=== PATIENT | male | born 1965 | race Caucasian/White ===

== ENCOUNTER → 2019-03-01 17:20 | Outpatient (CLI) | payer MEDICAID, SELFPAY ==
[2019-03-01 18:03] LABS: Basophils % 0.5 % (0.1-2.0); Eosinophils # 0.2 K/mm3 (0.0-0.4); Eosinophils % 3.3 % (0.1-12.0); Hematocrit 46.9 % (42.0-52.0); Hemoglobin 15.3 g/dL (14.1-18.0); Lymphocytes # 2.4 K/mm3 (0.7-4.5); Lymphocytes % 33.7 % (10-50); Mean Corpuscular HGB Conc 32.6 g/dL (31.8-35.4); Mean Corpuscular Hemoglobin 30.6 pg (27.0-31.2); Mean Corpuscular Volume 93.9 fl (80-94); Mean Platelet Volume 9.2 fl (7.4-10.4); Monocytes # 0.5 K/mm3 (0.1-1.0); Monocytes % 6.7 % (1.7-9.3); Neutrophils % 55.7 % (37.0-80.0); Platelet Count 266 K/mm3 (142-424); Red Blood Count 4.99 M/mm3 (4.60-6.20); Red Cell Distribution Width 12.4 % (11.5-17.5); White Blood Count 7.2 K/mm3 (4.8-10.8)
[2019-03-01 19:45] LABS: Alanine Aminotransferase 23 U/L (12-78); Albumin Level 3.9 gm/dL (3.4-5.0); Albumin/Globulin Ratio 1.2 (1.1-1.8); Alkaline Phosphatase 103 U/L (46-116); Anion Gap 14.8 mEq/L (5-15); Aspartate Amino Transferase 14 U/L (15-37); Bilirubin,Total 0.3 mg/dL (0.2-1.0); Blood Urea Nitrogen 11 mg/dL (7-18); Calcium 8.7 mg/dL (8.5-10.1); Carbon Dioxide 25 mmol/L (21.0-32.0); Chloride 102 mmol/L (98-107); Chol/HDL Ratio 5.6 (1-3.5); Cholesterol 191 mg/dL (140-200); Creatinine,Serum 1.04 mg/dL (0.70-1.30); Estimated Glomerular Filt Rate 75 ml/min (>60); GFR (African American) 91 ML/MIN (>60); Globulin 3.3 gm/dl (1.3-3.2); Glucose 127 mg/dL (74-106); HDL Cholesterol 34 mg/dL (27-67); LDL Cholesterol 101 mg/dL (0-130); Potassium 3.8 mmoL/L (3.5-5.1); Sodium 138 mmol/L (136-145); T4 (Thyroxine) 7.8 ug/dl (4.7-13.3); Thyroid Stimulating Hormone 1.89 uIU/ml (0.358-3.740); Total Protein,Serum 7.2 gm/dL (6.4-8.2); Triglycerides 282 mg/dL (30-200); VLDL Cholesterol 56 mg/dL (0-40)
[2019-03-03 11:04] LABS: Vitamin D 25 Hydroxy 26.5 ng/mL (30.0-100.0)
== END ==
PROVIDERS: Visit Provider Nurse Practitioner Family
DX: Z00.00 Encounter for general adult medical examination without abnormal findings (principal); Z76.89 Persons encountering health services in other specified circumstances
CPT/HCPCS: 80053; 80061; 82652; 84436; 84443; 85025

== ENCOUNTER → 2019-03-05 17:54 | Outpatient (CLI) | payer MEDICAID, SELFPAY ==
[2019-03-05 18:37] LABS: Hemoglobin A1C 6.4 % (0.0-7.0)
== END ==
PROVIDERS: Visit Provider Nurse Practitioner Family
DX: R73.9 Hyperglycemia, unspecified (principal)
CPT/HCPCS: 83036

== ENCOUNTER → 2019-04-20 13:33 | Outpatient (CLI) | payer MEDICAID, SELFPAY | PROVIDERS: PCP Nurse Practitioner Family; Visit Provider Nurse Practitioner Family | DX: R06.81 Apnea, not elsewhere classified (principal) | CPT/HCPCS: G0399 ==

== ENCOUNTER → 2019-07-23 10:48 | Outpatient (CLI) | payer MEDICAID, SELFPAY ==
[2019-07-23 15:24] LABS: Coronavirus 19 IgG Antibody Negative (Negative); Coronavirus 19 IgM Antibody Negative (Negative)
== END ==
PROVIDERS: Visit Provider Specialist
DX: G47.33 Obstructive sleep apnea (adult) (pediatric) (principal); Z01.818 Encounter for other preprocedural examination
CPT/HCPCS: 36415; 86328

== ENCOUNTER → 2019-07-24 20:13 | Outpatient (CLI) | payer MEDICAID, SELFPAY | PROVIDERS: PCP Nurse Practitioner Family; Visit Provider Specialist | DX: G47.33 Obstructive sleep apnea (adult) (pediatric) (principal) | CPT/HCPCS: 95810 ==

== ENCOUNTER 2019-08-30 15:24 | Emergency (ER) | payer MEDICAID, SELFPAY ==
--- NOTE | 2019-08-30 15:39 | XR_ITS ---
PROCEDURE: XR ANKLE RT MIN 3V CLINICAL INDICATION: TWISTED FOOT AND ANKLE WHILE WALKING Pain COMPARISON: XR FOOT RT MIN 3V from 08/30/2019 FINDINGS: No fracture or dislocation. No lytic or blastic change. There is normal mineralization. The joint spaces are well-preserved. No significant degenerative/arthritic changes. No erosive changes evident. Other findings:There is a well-circumscribed small calcification noted along the lateral aspect the calcaneus consistent with dystrophic calcification. IMPRESSION: No acute findings. Dictated by: Fran Mathews MD 08/30/2019 16:05 Electronically signed by Fran Mathews MD in [place] 08/30/2019 16:05
--- NOTE | 2019-08-30 15:39 | XR_ITS ---
PROCEDURE: XR FOOT RT MIN 3V CLINICAL INDICATION: TWISTED FOOT AND ANKLE WHILE WALKING Pain COMPARISON: No exams were available for comparison FINDINGS: No fracture or dislocation. No lytic or blastic change. There is normal mineralization. The joint spaces are well-preserved. No significant degenerative/arthritic changes. No erosive changes evident. Other findings:Type 1 os navicularis with bipartite. Small cyst distal aspect 5th metatarsal ossification center IMPRESSION: No acute findings. Dictated by: Fran Mathews MD 08/30/2019 16:04 Electronically signed by Fran Mathews MD in [place] 08/30/2019 16:04
[2019-08-30 15:40] VITALS: BP 147/70; PULSE 80; RESP 20; TEMP 36.8; O2SAT 98; BMI 31.6
--- NOTE | 2019-08-30 15:54 | HMH.EDUTC ---
[facility] [place] Clinical Impression: Foot sprain Qualifiers: Encounter type: initial encounter Laterality: right Qualified Code(s): S93.601A - Unspecified sprain of right foot, initial encounter Ankle sprain Qualifiers: Encounter type: initial encounter Involved ligament of ankle: unspecified ligament Laterality: right Qualified Code(s): S93.401A - Sprain of unspecified ligament of right ankle, initial encounter Disposition: Home, Self-Care Condition on Discharge: Good Instructions: How to Use Crutches, How To Perform RICE (Rest, Ice, Compress, Elevate) Additional Instructions: *weight bearing as tolerated *RICE, Rest the extremity, Ice 15-20 minutes 3-4 times daily, Compress- wear the terrell wrap as discussed as much as possible to help reduce swelling and pain, Elevate the extremity when at rest *Terrell wrap is for support and help control swelling, use it except in the shower. Be sure that is not to tight but not to loose either *Elevate when resting *Ibuprofen 600-800mg every 6-8 hours as needed for pain an inflammation. If need something more can take Tylenol in between doses of Ibuprofen to help Immediately follow up with your family doctor for new or worsening of symptoms, or no noticeable improvement over the next 3-5 days Referrals: Mari Hamilton APRN [Primary Care Provider] - As needed Jennifer Clement DPM [Staff Physician] - As needed (If no improvement or any worsening of symtpoms) Forms: Work/School Release Time of Disposition: 16:08 Medical Decision Making - Marito Inquiry Pt receiving controlled substance: No Marito was queried for this patient: No Vital Signs: 08/30/19 15:40 Temperature 98.2 F Temperature Source Oral Pulse Rate [Left Brachial] 80 Respiratory Rate 20 Blood Pressure [Left Arm] 147/70 H Blood Pressure Mean [Left Arm] 95 Blood Pressure Source [Left Arm] Automatic Cuff Blood Pressure Position [Left Arm] Sitting 02 Sat by Pulse Oximetry 98 Oxygen Delivery Method Room Air Orders (Tests/Meds): ORDERS Category Date Time Status XR ankle RT min 3V Stat Exams 08/30/19 15:39 Taken XR foot RT min 3V Stat Exams 08/30/19 15:39 Taken - Radiology Data #1 Image(s): Foot/Toes Image Reviewed: Yes I reviewed the patient's radiology image Preliminary Findings: No Fracture Seen #2 Image(s): Ankle Image Reviewed: Yes I reviewed the patient's radiology image Preliminary Findings: No Fracture Seen [facility] [place] - General Stated complaint: AO [id number] 1500 injured R Foot Time Seen by Provider: 08/30/19 15:54 Mode of Arrival: Ambulatory Source of Information: Patient Limitations: No Limitations Description of Symptoms (Recalled from Triage Doc. by RN): PATIENT STATES HE WAS WALKING AT A YARD SALE AND TWISTED HIS RIGHT ANKLE HEENT Symptoms (Recalled from RN notes): No Resp Symptoms (Recalled from RN notes): No Skin Symptoms (Recalled from RN notes): No MS Symptoms (Recalled from RN notes): Yes Functional Status (Recalled from RN notes): WNL - History of Present Illness Provider Complaint: Patient states that he was at a yardsale earlier and he twisted his right ankle States that ever since he has been having pain when he tries to walk on it and feels like something is 'stabbing in there and grating States that it didnt stop so he come in to have it checked out - Related Data Home Medications Medication Instructions Recorded Confirmed No Known Home Medications 08/30/19 08/30/19 Allergies Allergy/AdvReac Type Severity Reaction Status Date / Time No Known Allergies Allergy Verified 08/15/19 08:52 - Worker's Comp Is this a Worker's Comp case?: No [facility] History - Hepatitis A Screen Drug use history?: No High risk sexual behaviors?: No History of sexually transmitted infection?: No Currently employed?: No Childcare worker?: No Do you have indoor plumbing?: Yes Do you have electricity?: Yes Attestation statement:: This patient has been screened for Hepatitis A
[2019-08-30 16:28] VITALS: BP 147/70; PULSE 80; RESP 20; TEMP 36.8; O2SAT 98
== END 2019-08-30 16:32 | disposition home or self-care (01) ==
PROVIDERS: Emergency Provider Nurse Practitioner; PCP Nurse Practitioner Family
DX: S93.601A Unspecified sprain of right foot, initial encounter (principal); S93.401A Sprain of unspecified ligament of right ankle, initial encounter; X50.1XXA Overexertion from prolonged static or awkward postures, initial encounter; Y92.89 Other specified places as the place of occurrence of the external cause; F17.210 Nicotine dependence, cigarettes, uncomplicated
CPT/HCPCS: 73610; 73630; 99201

== ENCOUNTER → 2019-10-03 18:47 | Outpatient (CLI) | payer MEDICAID, SELFPAY ==
[2019-10-03 19:03] LABS: Basophils # 0.1 K/mm3 (0-0.2); Basophils % 0.6 % (0.1-2.0); Eosinophils # 0.3 K/mm3 (0.0-0.4); Eosinophils % 3.4 % (0.1-12.0); Lymphocytes # 2.7 K/mm3 (0.7-4.5); Lymphocytes % 34.2 % (10-50); Mean Corpuscular HGB Conc 33.3 g/dL (31.8-35.4); Mean Corpuscular Hemoglobin 31.5 pg (27.0-31.2); Mean Corpuscular Volume 94.4 fl (80-94); Mean Platelet Volume 9.4 fl (7.4-10.4); Monocytes # 0.4 K/mm3 (0.1-1.0); Monocytes % 5.6 % (1.7-9.3); Neutrophils # 4.4 K/mm3 (1.8-7.8); Neutrophils % 56.1 % (37.0-80.0); Platelet Count 274 K/mm3 (142-424); Red Blood Count 5.09 M/mm3 (4.60-6.20); Red Cell Distribution Width 12.8 % (11.5-17.5); White Blood Count 7.9 K/mm3 (4.8-10.8)
[2019-10-03 19:08] LABS: Chloride 104 mmol/L (98-107)
[2019-10-03 19:09] LABS: Potassium 4.2 mmoL/L (3.5-5.1); Sodium 139 mmol/L (136-145)
[2019-10-03 19:11] LABS: Alanine Aminotransferase 26 U/L (12-78); Alkaline Phosphatase 99 U/L (38-126); Anion Gap 13.2 mEq/L (5-15); Aspartate Amino Transferase 29 U/L (17-59); Bilirubin,Total 0.4 mg/dl (0.2-1.3); Blood Urea Nitrogen 11 mg/dl (9-20); Carbon Dioxide 26 mmol/L (22.0-30.0); Estimated Glomerular Filt Rate 78 ml/min (>60); GFR (African American) 95 ML/MIN (>60); Triglycerides 241 mg/dl (30-150); VLDL Cholesterol 48 mg/dL (0-40)
[2019-10-03 19:12] LABS: Albumin Level 4.2 g/dl (3.5-5.0); Albumin/Globulin Ratio 1.3 (1.1-1.8); Calcium 9.6 mg/dl (8.4-10.2); Globulin 3.2 g/dL (1.3-3.2); Glucose 160 mg/dl (74-100); HDL Cholesterol 44 mg/dl (40-60); Total Protein,Serum 7.4 g/dl (6.3-8.2)
[2019-10-03 19:24] LABS: Direct LDL Cholesterol 126.75 mg/dL (100-129)
[2019-10-03 19:32] LABS: Hemoglobin A1C 6.7 % (4.0-6.0); T4 (Thyroxine) 7.1 ug/dl (5.53-11.0)
[2019-10-03 19:42] LABS: Thyroid Stimulating Hormone 1.31 uIU/mL (0.465-4.68)
[2019-10-03 20:05] LABS: Creatinine,Urine Random 129 mg/dL (Not Estab.)
[2019-10-03 20:10] LABS: Microalbumin < 6.000 mg/L (0-16.7)
[2019-10-03 22:01] LABS: Chol/HDL Ratio 4.6 (1-3.5); Cholesterol 203 mg/dl (140-200)
[2019-10-14 18:47] LABS: 1,25 Dihydroxy Vitamin D 68 pg/mL (.); 1,25-Dihydroxy, Vitamin D-2 <10 pg/mL (.); 1,25-Dihydroxy, Vitamin D-3 59 pg/mL (.)
== END ==
PROVIDERS: Visit Provider Nurse Practitioner Family
DX: E11.9 Type 2 diabetes mellitus without complications (principal); R53.83 Other fatigue; E67.3 Hypervitaminosis D
CPT/HCPCS: 80053; 80061; 82043; 82570; 82652; 83036; 84436; 84443; 85025

== ENCOUNTER → 2019-11-07 18:33 | Outpatient (CLI) | payer MEDICAID, SELFPAY ==
[2019-11-07 18:50] LABS: Microalbumin < 6.000 mg/L (0-16.7)
== END ==
PROVIDERS: Visit Provider Nurse Practitioner Family
DX: E11.9 Type 2 diabetes mellitus without complications (principal); Z79.84 Long term (current) use of oral hypoglycemic drugs
CPT/HCPCS: 82043

== ENCOUNTER → 2019-12-11 14:32 | Outpatient (CLI) | payer MEDICAID, SELFPAY ==
[2019-12-11 15:38] LABS: Coronavirus 19 IgG Antibody Negative (Negative); Coronavirus 19 IgM Antibody Negative (Negative)
== END ==
PROVIDERS: Visit Provider Surgery
DX: Z03.818 Encounter for observation for suspected exposure to other biological agents ruled out (principal); Z12.11 Encounter for screening for malignant neoplasm of colon
CPT/HCPCS: 36415; 86328

== ENCOUNTER 2019-12-12 06:32 | Day surgery (SDC) | payer MEDICAID, SELFPAY ==
[2019-12-10 16:06] VITALS: BMI 31.6
[2019-12-12 06:45] VITALS: BP 137/72; PULSE 75; RESP 18; TEMP 36.3; O2SAT 100
[2019-12-12 06:59] LABS: POC Glucose,Bedside 105 (70-110)
[2019-12-12 07:19] VITALS: O2SAT 100
--- NOTE | 2019-12-12 07:45 | HMH.ANESCL ---
[facility] Anesthesia Checklist - Patient Identification Patient Identification: Arm Band, Verbal (Name & ) - Structural Data Admitted From: Home Planned Operative Procedure/s: Colonoscopy Consent for Planned Operative Procedure(s) Verified: Yes Verified Documents: Surgical Consent, History and Physical - NPO Status Verified Time NPO: 00:00 - Chart Verification Results Verified: CBC, BMP, UA - Additional verifications Fingerstick Blood Glucose: 105 Anesthesia Reactions: No - Airway Assessment C-Spine Mobility Assessed: Yes (Full neck ROM) TMJ Mobility Assessed: Yes Dentition: Poor Dentition (Missing teeth) - Neurological Assessment Level of Consciousness: Awake, Alert, Appropriate, Follows Commands Hx Seizures: No Numbness or tingling in extremities: No - Anesthesia Plan Anesthesia Risk discussed: Yes Anesthesia Plan: Verified ASA Class: III Anesthesia Type: MAC [facility] History I have reviewed the patient's past medical history: Yes Medical History: Reports:: Diabetes Mellitus Type 2, Hypertension Denies:: Cancer, Diabetes Mellitus Type 1, Internal Pacemaker, MRSA, Seizures *Have you ever received a pneumonia vaccine?: No *Have you received a flu vaccine this season?: No Other Medical History: Reports: Other Comment:: QUOC Anesthesia experience/problems:: None Other Surgeries: Yes: No Previous Surgery. No: Pacemaker Amputation: No Fractures: No - *Social History Last grade of school completed: High school graduate Smoking Status: Current every day smoker Tobacco Type: cigarettes # Packs/Day (cigarettes): 2 Alcohol Intake: never Alcohol Intake Frequency:: a few times a month Substance Use Type: denies use *Occupational Status:: employed Housing: house Household Members: spouse, family *Travel in the last 8 weeks: None Family Hx:: No significant family history
[2019-12-12 08:02] VITALS: BP 94/44; PULSE 65; RESP 20; TEMP 36.2; O2SAT 93
--- NOTE | 2019-12-12 08:02 | HMH.SCOPE ---
- Procedure: Date: 12/12/19 Patient Date of :: 1965 Procedure Performed:: Total colonoscopy to terminal ileum with polypectomy by snare and biopsy forceps. Indications:: Patient is a 54-year-old male referred for initial screening colonoscopy. He does have a family history of colon cancer reportedly. Performing Provider:: Tai Selby MD Referring Provider:: Mari Hamilton Sedation:: MAC sedation Procedure:: Patient was taken to the endoscopy procedure room. He was positioned in a lateral decubitus position. Adequate intravenous sedation was achieved with anesthesia titration of propofol. Digital examination was performed which revealed normal sphincter tone with unremarkable prostate. Variable stiffness Olympus colonoscope was inserted via the anus. It was advanced to the cecum. Colonic preparation was good. Ileocecal valve and appendiceal orifice were identified. Colonoscope was advanced into the terminal ileum which appeared grossly normal. Colonoscope was slowly withdrawn through the colon with careful surveillance. There was some degree of scattered pandiverticulosis. In the sigmoid colon there were a couple of diminutive hyperplastic appearing polyps removed with cold cutting snare. At the rectosigmoid region there were a couple of hyperplastic appearing polyps removed with biopsy forceps. There were some rectal polyps consistent with hyperplastic polyps and biopsy was performed of more prominent rectal polyp. Retroflexion revealed some minimal internal hemorrhoids. Colonoscope was withdrawn. Findings:: Scattered pandiverticulosis Diminutive hyperplastic appearing polyps Recommendations:: Repeat colonoscopy within 5 years pending the pathology. Likely 3 years if any adenomatous component. Complications:: None Estimated blood obtained (mL): 3
[2019-12-12 08:12] VITALS: BP 95/54; PULSE 61; RESP 18; O2SAT 95
[2019-12-12 08:22] VITALS: BP 108/70; PULSE 65; RESP 18; O2SAT 94
[2019-12-12 08:42] VITALS: BP 110/74; PULSE 66; RESP 18; O2SAT 95
== END 2019-12-12 08:46 | disposition home or self-care (01) ==
LOC: OUTP 06:33
PROVIDERS: PCP Nurse Practitioner Family; Visit Provider Surgery
PROC: 0DJD8ZZ Inspection of Lower Intestinal Tract, Via Natural or Artificial Opening Endoscopic (ICD-10-PCS; CPT 45385; principal; 2019-12-12 07:30)
DX: Z12.11 Encounter for screening for malignant neoplasm of colon (principal); K57.30 Diverticulosis of large intestine without perforation or abscess without bleeding; K63.5 Polyp of colon; E11.9 Type 2 diabetes mellitus without complications; I10 Essential (primary) hypertension; Z72.0 Tobacco use
CPT/HCPCS: 45385; 45380; 82962

== ENCOUNTER 2020-02-18 20:56 | Emergency (ER) | payer MEDICAID, SELFPAY ==
[2020-02-18 21:05] VITALS: BP 125/86; PULSE 68; RESP 18; TEMP 37.1; O2SAT 98; BMI 43.0
--- NOTE | 2020-02-18 21:14 | HMH.EDUTC ---
[facility] [place] Disposition Clinical Impression: Close exposure to COVID-19 virus, Sore throat (viral) Disposition: Home, Self-Care Condition on Discharge: Good Instructions: DI for COVID-19 (Suspected or Confirmed ), Coronavirus Disease 2019, Preventing the Spread of Coronavirus Discharge Instructions, Sore Throat Additional Instructions: *Monitor Temp, Over the counter Motrin or Tylenol as directed/as needed Tylenol every 4 hours and Motrin every 6 hours (as long as your family doctor has told you that you can take it) for fever or pain. and straight to ER if unable to lower temp less than 101.0 after medication given *Warm salt water gargles may help to soothe the throat *Throat Lozenges *Warm fluids like tea with honey may help to soothe the throat *Sleep elevated *Humidifier/Vaporizer Follow up IMMEDIATELY for new or worsening symptoms or no Noticeable improvement over the next 48-72 hours. 911 for difficulty breathing or swallowing You were tested for today for COVID19 your test result should be back in the next 24-48 hours, you may call to the [facility] to see if your test results are back in the next 48 hours [phone] [facility] hours are 9am-9pm You was given a handout with instructions for Self Quarantine and Self isolation for while you wait on test results and what to do if they are positive If you are positive the Health Dept will be contacting you also Referrals: Mari Hamilton APRN [Primary Care Provider] - As needed Forms: Work/School Release Time of Disposition: 21:17 Medical Decision Making - Marito Inquiry Pt receiving controlled substance: No Marito was queried for this patient: No Vital Signs: 02/18/20 21:05 Temperature 98.7 F Temperature Source Oral Pulse Rate [Right Brachial] 68 Respiratory Rate 18 Blood Pressure [Right Arm] 125/86 Blood Pressure Mean [Right Arm] 99 Blood Pressure Source [Right Arm] Automatic Cuff Blood Pressure Position [Right Arm] Sitting 02 Sat by Pulse Oximetry 98 Oxygen Delivery Method Room Air Orders (Tests/Meds): ORDERS Category Date Time Status Covid-19 Nasal PCR ([facility]) Routine Lab 02/18/20 20:58 Ordered [facility] [place] HPI - General Stated complaint: covid test Time Seen by Provider: 02/18/20 21:15 Mode of Arrival: Ambulatory Source of Information: Patient Limitations: No Limitations Description of Symptoms (Recalled from Triage Doc. by RN): COVID TEST D/T EXPOSURE; C/O SORE THROAT HEENT Symptoms (Recalled from RN notes): Yes Resp Symptoms (Recalled from RN notes): No Skin Symptoms (Recalled from RN notes): No MS Symptoms (Recalled from RN notes): No Functional Status (Recalled from RN notes): WNL - History of Present Illness Provider Complaint: Patient states that one of his sons tested positive for COVID States that he has been having scratchy throat and made him come in to get tested to see if he may have it now too Denies any other symptoms States that he is an everyday smoker - Related Data Home Medications Medication Instructions Recorded Confirmed Aspirin [Low Dose Aspirin EC] 81 mg PO DAILY 12/10/19 01/30/20 Simvastatin 5 mg PO DAILY 12/10/19 01/30/20 lisinopriL [Lisinopril 2.5mg Tab] 2.5 mg PO DAILY 12/10/19 01/30/20 Previous Rx's Medication Instructions Recorded metformin 500 mg tablet 500 mg PO BID #180 tab 12/11/19 Allergies Allergy/AdvReac Type Severity Reaction Status Date / Time No Known Allergies Allergy Verified 01/30/20 09:46 - Worker's Comp Is this a Worker's Comp case?: No [facility] History - Hepatitis A Screen Drug use history?: No High risk sexual behaviors?: No History of sexually transmitted infection?: No Currently employed?: No Childcare worker?: No Do you have indoor plumbing?: Yes Do you have electricity?: Yes Attestation statement:: This patient has been screened for Hepatitis A risk factors. I have reviewed the patient's past medical history: Yes Medical History: Reports:: Diabetes Mellitus Type
[2020-02-18 21:20] VITALS: BP 125/86; PULSE 68; RESP 18; TEMP 37.1; O2SAT 98
== END 2020-02-18 21:21 | disposition home or self-care (01) ==
PROVIDERS: Emergency Provider Nurse Practitioner; PCP Nurse Practitioner Family
DX: Z20.822 Contact with and (suspected) exposure to COVID-19 (principal); I10 Essential (primary) hypertension; E78.5 Hyperlipidemia, unspecified; E11.9 Type 2 diabetes mellitus without complications; F17.210 Nicotine dependence, cigarettes, uncomplicated; Z79.899 Other long term (current) drug therapy
CPT/HCPCS: 99202; G0463; U0003

== ENCOUNTER 2020-02-25 14:10 | Emergency (ER) | payer MEDICAID, SELFPAY ==
[2020-02-25 15:40] VITALS: BP 113/73; PULSE 83; RESP 20; TEMP 36.7; O2SAT 97; BMI 31.3
--- NOTE | 2020-02-25 16:03 | HMH.EDUTC ---
[facility] [place] Clinical Impression: Exposure to COVID-19 virus Disposition: Home, Self-Care Condition on Discharge: Good Instructions: Preventing the Spread of Coronavirus Discharge Instructions Additional Instructions: Drink plenty of fluids. Take tylenol for pain or fever. Follow up with your regular doctor. GO TO THE ER FOR ANY WORSENING SYMPTOMS Referrals: Mari Hamilton APRN [Primary Care Provider] - Time of Disposition: 16:06 Medical Decision Making - Medical Records Medical records reviewed: No: I reviewed the patient's medical records. - Marito Inquiry Pt receiving controlled substance: No Vital Signs: 02/25/20 15:40 02/25/20 16:09 Temperature 98.1 F 98.1 F Temperature Source Oral Pulse Rate 83 Pulse Rate [Right Brachial] 83 Respiratory Rate 20 20 Blood Pressure 113/73 Blood Pressure [Right Arm] 113/73 Blood Pressure Mean [Right Arm] 86 Blood Pressure Source [Right Arm] Automatic Cuff Blood Pressure Position [Right Arm] Sitting 02 Sat by Pulse Oximetry 97 Oxygen Delivery Method Room Air Orders (Tests/Meds): ORDERS Category Date Time Status Covid-19 Nasal PCR ([facility]) Routine Lab 02/25/20 15:45 Received [facility] [place] - General Stated complaint: covid test Time Seen by Provider: 02/25/20 16:03 - History of Present Illness Provider Complaint: He states that he has been exposed to covid-19. He denies any symptoms. - Related Data Home Medications Medication Instructions Recorded Confirmed Aspirin [Low Dose Aspirin EC] 81 mg PO DAILY 12/10/19 01/30/20 Simvastatin 5 mg PO DAILY 12/10/19 01/30/20 lisinopriL [Lisinopril 2.5mg Tab] 2.5 mg PO DAILY 12/10/19 01/30/20 Previous Rx's Medication Instructions Recorded metformin 500 mg tablet 500 mg PO BID #180 tab 12/11/19 Allergies Allergy/AdvReac Type Severity Reaction Status Date / Time No Known Allergies Allergy Verified 01/30/20 09:46 [facility] History - Hepatitis A Screen Attestation statement:: This patient has been screened for Hepatitis A risk factors. I have reviewed the patient's past medical history: Yes Medical History: Reports:: Diabetes Mellitus Type 2, Hypertension Denies:: Cancer, Diabetes Mellitus Type 1, Internal Pacemaker, MRSA, Seizures Other Medical History: Reports: Other Comment: QUOC Other Surgeries: Yes: No Previous Surgery, Colonoscopy. No: Pacemaker Amputation: No Fractures: No - Social History Smoking Status: Current every day smoker Tobacco Type: cigarettes # Packs/Day (cigarettes): 2 Alcohol Intake: never Alcohol Intake Frequency:: a few times a month Substance Use Type: denies use Occupational Status: other Housing: house Household Members: spouse, family Family Hx:: No significant family history ROS Obtained: Yes All systems reviewed & no additional complaints - Constitutional Constitutional: Reports system reviewed and no additional complaints, except as docu - Eyes Eyes: Reports system reviewed and no additional complaints, except as docu - ENT Ears, Nose, Mouth, and Throat: Reports system reviewed and no additional complaints, except as docu - Cardiovascular Cardiovascular: Reports system reviewed and no additional complaints, except as docu - Respiratory Respiratory: Reports system reviewed and no additional complaints, except as docu - Gastrointestinal Gastrointestingal: Reports: system reviewed and no additional complaints, except as docu Physical Exam - General General appearance: alert, in no apparent distress - Head Head exam: atraumatic, normocephalic, normal inspection - Eye Eye exam: Present: normal appearance, PERRL, EOMI - ENT ENT exam: Present: normal exam, normal oropharynx, mucous membranes moist, TM's normal bilaterally, normal external ear exam - Neck Neck exam: Present: normal inspection, full ROM, trachea midline. Absent: meningismus, lymphadenopathy - Chest Chest inspection: Present: normal inspectio
[2020-02-25 16:09] VITALS: BP 113/73; PULSE 83; RESP 20; TEMP 36.7; O2SAT 97
== END 2020-02-25 16:13 | disposition home or self-care (01) ==
PROVIDERS: Emergency Provider Nurse Practitioner Family; PCP Nurse Practitioner Family
DX: Z20.822 Contact with and (suspected) exposure to COVID-19 (principal); E11.9 Type 2 diabetes mellitus without complications; I10 Essential (primary) hypertension; Z79.899 Other long term (current) drug therapy
CPT/HCPCS: 99202; G0463; U0003

== ENCOUNTER → 2020-04-23 19:02 | Outpatient (CLI) | payer MEDICAID, SELFPAY ==
[2020-04-23 19:18] LABS: Basophils # 0.1 K/mm3 (0-0.2); Basophils % 0.8 % (0.1-2.0); Eosinophils # 0.3 K/mm3 (0.0-0.4); Hematocrit 47.8 % (42.0-52.0); Hemoglobin 15.5 g/dL (14.1-18.0); Lymphocytes # 2.6 K/mm3 (0.7-4.5); Mean Corpuscular HGB Conc 32.4 g/dL (31.8-35.4); Mean Corpuscular Hemoglobin 30.7 pg (27.0-31.2); Mean Corpuscular Volume 94.7 fl (80-94); Mean Platelet Volume 9.3 fl (7.4-10.4); Monocytes # 0.4 K/mm3 (0.1-1.0); Neutrophils # 4.6 K/mm3 (1.8-7.8); Neutrophils % 58.2 % (37.0-80.0); Platelet Count 224 K/mm3 (142-424); Red Blood Count 5.05 M/mm3 (4.60-6.20)
[2020-04-23 19:47] LABS: Creatinine,Urine Random 99 mg/dL (Not Estab.); Microalbumin < 6.000 mg/L (0-16.7)
[2020-04-23 20:08] LABS: Alanine Aminotransferase 23 U/L (12-78); Albumin Level 4.4 g/dl (3.5-5.0); Albumin/Globulin Ratio 1.5 (1.1-1.8); Alkaline Phosphatase 84 U/L (38-126); Anion Gap 13.7 mEq/L (5-15); Aspartate Amino Transferase 29 U/L (17-59); Bilirubin,Total 0.4 mg/dl (0.2-1.3); Blood Urea Nitrogen 20 mg/dl (9-20); Calcium 9.5 mg/dl (8.4-10.2); Carbon Dioxide 26 mmol/L (22.0-30.0); Chloride 105 mmol/L (98-107); Cholesterol 160 mg/dl (140-200); Estimated Glomerular Filt Rate 63 ml/min (>60); GFR (African American) 77 ML/MIN (>60); Glucose 90 mg/dl (74-100); HDL Cholesterol 53 mg/dl (40-60); Potassium 4.7 mmoL/L (3.5-5.1); Sodium 140 mmol/L (136-145); Total Protein,Serum 7.4 g/dl (6.3-8.2); Triglycerides 204 mg/dl (30-150); VLDL Cholesterol 41 mg/dL (0-40)
[2020-04-23 20:25] LABS: 25-OH Vitamin D, Total 18.1 ng/mL (30-100)
[2020-04-23 20:26] LABS: T4 (Thyroxine) 6.8 ug/dl (5.53-11.0)
[2020-04-23 20:40] LABS: Thyroid Stimulating Hormone 1.06 uIU/mL (0.465-4.68)
[2020-04-23 22:13] LABS: Hemoglobin A1C 6.1 % (4.0-6.0)
== END ==
PROVIDERS: Visit Provider Nurse Practitioner Family
DX: E11.9 Type 2 diabetes mellitus without complications (principal)
CPT/HCPCS: 80053; 80061; 82043; 82306; 82570; 83036; 84436; 84443; 85025

== ENCOUNTER → 2021-06-08 09:07 | Outpatient (CLI) | payer BC, MEDICAID, SELFPAY ==
[2021-06-08 13:35] LABS: Basophils % 0.7 % (0.1-2.0); Eosinophils # 0.3 K/mm3 (0.0-0.4); Eosinophils % 5.2 % (0.1-12.0); Hematocrit 46.8 % (42.0-52.0); Hemoglobin 15.6 g/dL (14.1-18.0); Lymphocytes # 2.1 K/mm3 (0.7-4.5); Lymphocytes % 34.1 % (10-50); Mean Corpuscular HGB Conc 33.4 g/dL (31.8-35.4); Mean Corpuscular Hemoglobin 30.8 pg (27.0-31.2); Mean Corpuscular Volume 92.3 fl (80-94); Mean Platelet Volume 8.7 fl (7.4-10.4); Monocytes # 0.4 K/mm3 (0.1-1.0); Monocytes % 7.2 % (1.7-9.3); Neutrophils # 3.2 K/mm3 (1.8-7.8); Neutrophils % 52.8 % (37.0-80.0); Platelet Count 235 K/mm3 (142-424); Red Blood Count 5.07 M/mm3 (4.60-6.20); Red Cell Distribution Width 12.4 % (11.5-17.5); White Blood Count 6.1 K/mm3 (4.8-10.8)
[2021-06-08 13:46] LABS: Alanine Aminotransferase 33 U/L (12-78); Albumin Level 4.1 g/dl (3.5-5.0); Albumin/Globulin Ratio 1.7 (1.1-1.8); Alkaline Phosphatase 76 U/L (38-126); Anion Gap 12.1 mEq/L (5-15); Aspartate Amino Transferase 30 U/L (17-59); Bilirubin,Total 0.4 mg/dl (0.2-1.3); Blood Urea Nitrogen 17 mg/dl (9-20); Calcium 8.7 mg/dl (8.4-10.2); Carbon Dioxide 24 mmol/L (22.0-30.0); Chloride 106 mmol/L (98-107); Cholesterol 177 mg/dl (140-200); Estimated Glomerular Filt Rate 88 ml/min (>60); GFR (African American) 106 ML/MIN (>60); Globulin 2.4 g/dL (1.3-3.2); Glucose 112 mg/dl (74-100); HDL Cholesterol 44 mg/dl (40-60); Potassium 4.1 mmoL/L (3.5-5.1); Sodium 138 mmol/L (136-145); Total Protein,Serum 6.5 g/dl (6.3-8.2); Triglycerides 102 mg/dl (30-150); VLDL Cholesterol 20 mg/dL (0-40)
[2021-06-08 13:58] LABS: Direct LDL Cholesterol 101.05 mg/dL (100-129)
[2021-06-08 14:02] LABS: 25-OH Vitamin D, Total 45.8 ng/mL (30-100)
[2021-06-08 14:03] LABS: T4 (Thyroxine) 6.9 ug/dl (5.53-11.0)
[2021-06-08 14:17] LABS: Hemoglobin A1C 5.9 % (4.0-6.0)
[2021-06-08 14:44] LABS: Microalbumin < 6.000 mg/L (0-16.7)
[2021-06-09 10:46] LABS: C-Peptide 4.5 ng/mL (1.1-4.4)
== END ==
PROVIDERS: PCP Nurse Practitioner Family; Visit Provider Nurse Practitioner Family
DX: R73.03 Prediabetes (principal); E66.9 Obesity, unspecified; Z68.33 Body mass index [BMI] 33.0-33.9, adult
CPT/HCPCS: 80053; 80061; 82043; 82306; 83036; 84436; 84443; 84681; 85025

== ENCOUNTER → 2021-07-06 06:26 | Outpatient (CLI) | payer BC, MEDICAID, SELFPAY ==
--- NOTE | 2021-07-06 06:28 | CA_ITS ---
APPROVED REPORT EXAM: Comprehensive 2D, Doppler, and color-flow Echocardiogram Safety Glass Installer: Joaquina Osman CRT Ht: 5 ft 8 in Wt: 221lbs BSA: 2.13 BP: 134/85 mmHg Indications: Abnormal ECG, Chest Pain, Atrial Fibrillation, Hyperlipidemia, Hypertension/HDD 2D Dimensions LVOT 2.05 cm (M/F) 1.5-2.5 M-Mode Dimensions RVDd 4.09 cm (0.9-2.6) LA Diam 4.16 cm (1.9-4.0) LVDd 5.05 cm (3.5-5.7) Ao Diam 4.34 cm (2.0-3.7) LVDs 3.13 cm (3.5-5.7) IVSd 1.04 cm (0.6-1.1) PWd 0.92 cm (0.6-1.1) EF (Teich) 67.90% FS 38.00% EDV (Teich) 121.00 mL TAPSE 2.30 (<1.7) ESV (Teich) 38.80 mL LV Diastology E Decel Time 217.00 (160-240 msec) E/A Ratio 0.88 MED E' 8.20 (< 7 cm/sec) MED A' 11.90 cm/s E'/MED E' Ratio 8.00 (>14) LAT E' 13.40 (<10 cm/sec) LAT A' 12.10 cm/s E/LAT E' Ratio 4.90 (>14) Aortic Valve AO Peak GR. 6.00 mmHg Mitral Valve MV E Max Henry. 66.00 (40-130 cm/s) MV A Velocity 75.00 (40-130 cm/s) E/A Ratio 0.88 MV Decel. Time 217.00 (160-240 ms) MV PHT 63.00 ms Pulmonary Valve PV Peak Velocity 131.00 (50-150 cm/s) Tricuspid Valve TR P. Velocity 198.00 cm/s RAP Estimate 10.00 mmHg RVSP 25.70 mmHg Left Ventricle Left atrium is mildly enlarged, left ventricle is normal size, mild concentric left ventricular hypertrophy, estimated ejection fraction 55% with no regional wall motion abnormality, grade 1 diastolic dysfunction seen without tissue Doppler evidence of raise left atrial pressure. Right Ventricle Right atrium and right ventricle are normal size and contractility. Aortic Valve Aortic valve is minimally thickened and fibrosed there is no aortic stenosis or aortic insufficiency. Mitral Valve Mitral valve grossly normal, there is trace mitral regurgitation. Tricuspid Valve Tricuspid grossly normal, there is trace tricuspid regurgitation, tricuspid regurgitation jet velocity is inadequate for calculation of the right ventricular systolic pressure. Pulmonic Valve Pulmonic valve is poorly visualized. Great Vessels Aortic root is normal size. Inferior vena cava is normal size with normal spectral collapse. Pericardium No significant pericardial effusion noted. Conclusion 1. Normal left ventricular size, preserved left ventricular systolic function, estimated ejection fraction 55% with no regional wall motion abnormality, grade 1 diastolic dysfunction seen without tissue Doppler evidence of raise left atrial pressure, mild concentric left ventricular hypertrophy present. 2. Trace mitral and tricuspid regurgitation. 3. No significant pericardial effusion noted. 4. Inferior vena cava normal size with normal inspiratory collapse. Electronically signed by : Lakhwinder Horton MD 07/06/2021 20:33:30
--- NOTE | 2021-07-06 06:28 | CA_ITS ---
APPROVED REPORT Exam: Exercise Treadmill Technologist: Ester Tidwell, Ht: 5 ft 8 in Wt: 221 lbs BSA: 2.13 m2 HR: 67 bpm BP: 124/81 mmHg Medical History Medications: JaRDiance,,,,, Potassium,,,,, Stress Test Details Test: Darin HR Resting HR: 62 bpm Max Heart Rate (APMHR): 166.811360 bpm Max HR Achieved: 152 bpm Target HR (85% APMHR): 141.429207 bpm % of APMHR: 91.57 Recovery HR: 83 bpm BP Resting BP: 133/90 mmHg Max BP: 201/68 mmHg Recovery BP: 148.0/71.0 mmHg ECG Clinical Exercise duration: 10:08 min Highest Stage Achieved: IV Exercise capacity: 12.8 METs Stress ECG Conclusion Test stopped due to: legs cramping Symptoms: SOA with exercise. leg cramping. no chest pain Arrhythmias/Ectopy: none Test Summary RECOVERY 01:00 0.0 0.0 126 . . . Stop exercise at 10:08 REST 08:01 0.0 0.0 62 . 133/ 90 . . Stage 1 01:00 10.0 1.7 89 . . . . Stage 1 02:00 10.0 1.7 88 . . . . Stage 1 03:00 10.0 1.7 89 . 138/ 84 . . Stage 2 01:00 12.0 2.5 101 . . . . Stage 2 02:00 12.0 2.5 104 . . . . Stage 2 03:00 12.0 2.5 108 . 160/ 90 . . Stage 3 01:00 14.0 3.4 120 . . . . Stage 3 02:00 14.0 3.4 126 . . . . Stage 3 03:00 14.0 3.4 129 . 190/ 82 . . Stage 4 01:00 16.0 4.2 149 . . . . Stage 4 01:08 16.0 4.2 151 . . . Stop exercise at 10:08 RECOVERY 01:00 0.0 0.0 126 . . . . RECOVERY 02:00 0.0 0.0 100 . . . . RECOVERY 03:00 0.0 0.0 93 . 201/ 68 . . RECOVERY 04:00 0.0 0.0 88 . 150/ 69 . . RECOVERY 05:00 0.0 0.0 85 . 150/ 69 . . RECOVERY 05:25 0.0 0.0 85 . 148/ 71 . . Electronically signed by : Lakhwinder Horton MD 07/06/2021 20:56:36
--- NOTE | 2021-07-06 06:28 | NM_ITS ---
APPROVED REPORT Exam: Nuclear Stress Test Indication: Chest pain, Abnormal EKG, SOB, DM, Tobacco use Patient Location: Outpatient Stress Tech: Ester Collier [facility] Tech:Deisy Santo, ARRT, RT (R)(N) Ht: 5 ft 8 in Wt: 214 lbs HR: 62 bpm BP: 133/90 mmHg BSA: 2.10 m2 TID: 1.25 BMI: 32.5 History: Chest pain, Abnormal EKG, SOB, DM, Tobacco use Procedure: Patient exercised on Darin protocol 10.08 minutes and sec, resting heart rate 62 bpm, resting blood pressure 133/90 mmHg, with exercise maximum heart rate achived was 152 bpm which is 92 % of the maximum predicted heart rate and blood pressure was 201/68 mmHg. Test was stopped due to SOB. Patient denied any complaint of chest pain. Patient has good exercise capacity, achieved 12.8 METs of workload on treadmill, the blood pressure response to exercise was Hypertensive. Electrocardiogram Resting electrocardiogram showed sinus rhythm, with exercise there is less than 1.[address] segment depression noted from the baseline EKG. The EKG portion of the exercise Myoview is negative for ischemia. Cardiac Stress and Resting SPECT Images: Cardiac Stress and Resting SPECT images were obtained using technetium 99m Myoview 29.0 mCi stress and 10.03 mCi at rest. Gated SPECT for analysis of segmental wall motion and calculation of ejection fraction also done. Cardiac stress and resting SPECT images show uniform myocardial activity without segmental perfusion abnormality, there is transient ischemic dilatation of the left ventricle seen, raising the concern for presence of balanced ischemia or multivessel coronary artery disease. Computer derived ejection fraction is 56% with no regional wall motion abnormality, right ventricle is normal size and contractility. Conclusion: 1. The EKG portion of the exercise Myoview is negative for ischemia, patient has good exercise capacity achieved 12.8 METs of workload on treadmill, the blood pressure response to exercise was hypertensive. 2. No scintigraphic evidence of reversible ischemia seen, computer derived ejection fraction is 56% with no regional wall motion abnormality, right ventricle is normal size and contractility, there is transient ischemic dilatation is of the left ventricle seen, raising the concerns for presence of balanced ischemia or multivessel coronary artery disease. 3. Abnormal exercise Myoview study. Electronically signed by : Lakhwinder Horton MD 07/06/2021 21:00:16
--- NOTE | 2021-07-06 08:47 | HMH.ITSHM ---
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 [][id number]
== END ==
PROVIDERS: PCP Nurse Practitioner Family; Visit Provider Nurse Practitioner
DX: R07.9 Chest pain, unspecified (principal); R94.31 Abnormal electrocardiogram [ECG] [EKG]
CPT/HCPCS: 78452; 93017; 93306; A9502

== ENCOUNTER → 2021-08-03 12:25 | Outpatient (CLI) | payer BC, MEDICAID, SELFPAY ==
[2021-08-03 13:34] LABS: Basophils # 0.1 K/mm3 (0-0.2); Basophils % 0.9 % (0.1-2.0); Eosinophils # 0.2 K/mm3 (0.0-0.4); Hematocrit 48.3 % (42.0-52.0); Lymphocytes % 33.3 % (10-50); Mean Corpuscular HGB Conc 33.1 g/dL (31.8-35.4); Mean Corpuscular Hemoglobin 31.4 pg (27.0-31.2); Mean Corpuscular Volume 94.8 fl (80-94); Mean Platelet Volume 8.8 fl (7.4-10.4); Monocytes # 0.4 K/mm3 (0.1-1.0); Monocytes % 6.4 % (1.7-9.3); Neutrophils # 3.3 K/mm3 (1.8-7.8); Neutrophils % 55.4 % (37.0-80.0); Platelet Count 206 K/mm3 (142-424); Red Blood Count 5.09 M/mm3 (4.60-6.20); Red Cell Distribution Width 13.1 % (11.5-17.5); White Blood Count 5.9 K/mm3 (4.8-10.8)
[2021-08-03 14:25] LABS: Anion Gap 10.6 mEq/L (5-15); Blood Urea Nitrogen 12 mg/dl (9-20); Calcium 9.1 mg/dl (8.4-10.2); Carbon Dioxide 28 mmol/L (22.0-30.0); Chloride 103 mmol/L (98-107); Estimated Glomerular Filt Rate 88 ml/min (>60); GFR (African American) 106 ML/MIN (>60); Glucose 139 mg/dl (74-100); Potassium 4.6 mmoL/L (3.5-5.1); Sodium 137 mmol/L (136-145)
== END ==
PROVIDERS: PCP Emergency Medicine; Visit Provider Physician Assistant
DX: Z01.812 Encounter for preprocedural laboratory examination (principal); Z20.822 Contact with and (suspected) exposure to COVID-19; R07.9 Chest pain, unspecified; I20.8 Other forms of angina pectoris; R94.30 Abnormal result of cardiovascular function study, unspecified; R94.31 Abnormal electrocardiogram [ECG] [EKG]; Z72.0 Tobacco use
CPT/HCPCS: 36415; 80048; 85025; C9803; U0003; U0005

== ENCOUNTER 2021-08-04 08:01 | Day surgery (SDC) | payer BC, MEDICAID, SELFPAY ==
[2021-08-04] VITALS (11 sets, daily range): BP systolic 113–133; BP diastolic 71–86; PULSE 50–60; RESP 18–20; TEMP 36.4; O2SAT 93–100; BMI 34.4
--- NOTE | 2021-08-04 | IR_ITS ---
APPROVED REPORT Patient Location: Outpatient Engine Setter: YUKO Hauser RT (R) PROCEDURES Left heart catheterization Left ventriculogram Selective coronary angiogram INDICATION Abnormal Myoview, Angina pectoris Informed consent was obtained prior to the procedure. COMPLICATIONS NONE Estimated Blood Loss: LESS THAN 10 ML TECHNIQUE One percent lidocaine used to anesthetize the right anterior aspect of the wrist. The right radial artery was accessed via the Seldinger technique. A 6 Azeri sheath was placed in the right radial artery. 2.5 mg of verapamil, 800 mcg of nitroglycerin, 1mg Lidocaine and 5000 U Heparin were given through the arterial sheath. The papa catheter was also used to perform left heart catheterization, left ventriculogram and selective coronary angiogram. At the end of the procedure the sheath was removed good hemostasis was achieved using Traclet band, patient was transferred to the postop holding area in stable condition. ANGIOGRAPHIC RESULTS The left main artery Normal The left anterior descending artery As proximal 20 to 30% stenoses with mid vessel 10% stenoses accompanied by RACHAEL II flow The circumflex artery Nondominant normal The right coronary artery Dominant normal The VERA ventriculogram reveals Preserved at 55 to 60% The left ventricular end-diastolic pressure Moderate to severely elevated at 30 mmHg IMPRESSION Endothelial dysfunction down the LAD accompanied by mild nonflow limiting coronary artery disease Preserved ejection fraction Elevated LVEDP consistent with diastolic dysfunction PLAN 1. Medical management for coronary artery disease 2. Medical management for diastolic dysfunction 3. Medical management for endothelial dysfunction 4. Avoidance of tobacco products 5. Risk factor modification Electronically signed by : Desmond Arrieta MD 08/04/2021 10:50:13
== END 2021-08-04 14:01 | disposition home or self-care (01) ==
LOC: CATHLAB 08:02
PROVIDERS: PCP Nurse Practitioner Family; Visit Provider Internal Medicine
DX: I25.118 Atherosclerotic heart disease of native coronary artery with other forms of angina pectoris (principal); I11.9 Hypertensive heart disease without heart failure; Z79.84 Long term (current) use of oral hypoglycemic drugs; I10 Essential (primary) hypertension; F17.210 Nicotine dependence, cigarettes, uncomplicated; Z79.899 Other long term (current) drug therapy; R94.39 Abnormal result of other cardiovascular function study
CPT/HCPCS: 93458; 99152; C1725; C1769; J1644; Q9967

== ENCOUNTER → 2021-08-12 09:16 | Outpatient (CLI) | payer BC, MEDICAID, SELFPAY ==
--- NOTE | 2021-08-12 09:19 | CA_ITS ---
FINAL REPORT CLINICAL HISTORY: RT WRIST PAIN,DECREASED PULSE,PT HAD CATH ON 08/04 WITH RT WRIST ACCESS FINDINGS: Limited Duplex Sonographic images of the right upper extremity were obtained. Thrombus visualized in the right radial artery. No pseudoaneurysm is identified. IMPRESSION: Thrombus visualized right radial artery. No pseudoaneurysm. Results were called to the patient's provider by the senior nuclear medicine technologist. Reviewed, Interpreted and Dictated by Tai Wood III, MD Transcribed by Richelle Hoskins Authenticated and [facility]
== END ==
PROVIDERS: PCP Emergency Medicine; Visit Provider Physician Assistant
DX: M25.531 Pain in right wrist (principal); I20.8 Other forms of angina pectoris; R94.30 Abnormal result of cardiovascular function study, unspecified; R94.31 Abnormal electrocardiogram [ECG] [EKG]; Z72.0 Tobacco use
CPT/HCPCS: 93931

== ENCOUNTER → 2021-09-07 13:28 | Outpatient (CLI) | payer BC, MEDICAID, SELFPAY ==
--- NOTE | 2021-09-07 13:28 | CA_ITS ---
FINAL REPORT CLINICAL HISTORY: .F/U RIGHT RADIAL ARTERY THROMBUS PT ON XARELTO FINDINGS: UPPER EXTREMITY ARTERIAL DUPLEX Spectral and Doppler waveform evaluations of the right wrist were performed. Spectral analysis was performed. The right radial artery is patent without evidence of thrombus. IMPRESSION: Patent right radial artery. Reviewed, Interpreted and Dictated by Naa Lester MD Transcribed by Dirk Cruz Authenticated and [facility]
== END ==
PROVIDERS: PCP Emergency Medicine; Visit Provider Physician Assistant
DX: I25.10 Atherosclerotic heart disease of native coronary artery without angina pectoris (principal); M25.531 Pain in right wrist; R94.30 Abnormal result of cardiovascular function study, unspecified
CPT/HCPCS: 93931

== ENCOUNTER → 2022-08-03 11:00 | Outpatient (CLI) | payer BC, MEDICAID, SELFPAY ==
[2022-08-03 12:23] LABS: Chloride 104 mmol/L (98-107); Potassium 4.3 mmoL/L (3.5-5.1); Sodium 138 mmol/L (136-145)
[2022-08-03 12:24] LABS: Basophils % 0.5 % (0.1-2.0); Eosinophils # 0.2 K/mm3 (0.0-0.4); Eosinophils % 3.7 % (0.1-12.0); Hematocrit 50.7 % (42.0-52.0); Hemoglobin 16.5 g/dL (14.1-18.0); Lymphocytes # 1.9 K/mm3 (0.7-4.5); Mean Corpuscular HGB Conc 32.6 g/dL (31.8-35.4); Mean Corpuscular Hemoglobin 29.7 pg (27.0-31.2); Mean Corpuscular Volume 91.2 fl (80-94); Mean Platelet Volume 9.5 fl (7.4-10.4); Monocytes # 0.5 K/mm3 (0.1-1.0); Monocytes % 7.1 % (1.7-9.3); Neutrophils # 3.7 K/mm3 (1.8-7.8); Neutrophils % 58.7 % (37.0-80.0); Platelet Count 226 K/mm3 (142-424); Red Blood Count 5.56 M/mm3 (4.60-6.20); Red Cell Distribution Width 12.7 % (11.5-17.5); White Blood Count 6.4 K/mm3 (4.8-10.8)
[2022-08-03 12:25] LABS: Alanine Aminotransferase 27 U/L (12-78); Alkaline Phosphatase 101 U/L (38-126); Aspartate Amino Transferase 30 U/L (17-59); Bilirubin,Total 0.5 mg/dl (0.2-1.3); Blood Urea Nitrogen 16 mg/dl (9-20); Estimated Glomerular Filt Rate 78 ml/min (>60); GFR (African American) 94 ML/MIN (>60)
[2022-08-03 12:26] LABS: Albumin Level 4.1 g/dl (3.5-5.0); Albumin/Globulin Ratio 1.4 (1.1-1.8); Anion Gap 14.3 mEq/L (5-15); Calcium 8.9 mg/dl (8.4-10.2); Carbon Dioxide 24 mmol/L (22.0-30.0); Chol/HDL Ratio 4.1 (1-3.5); Cholesterol 189 mg/dl (140-200); Globulin 2.9 g/dL (1.3-3.2); Glucose 113 mg/dl (74-100); HDL Cholesterol 46 mg/dl (40-60); Triglycerides 160 mg/dl (30-150); VLDL Cholesterol 32 mg/dL (0-40)
[2022-08-03 12:30] LABS: Hemoglobin A1C 6.2 % (4.0-6.0)
[2022-08-03 12:38] LABS: Direct LDL Cholesterol 114.68 mg/dL (100-129)
[2022-08-03 12:57] LABS: Thyroid Stimulating Hormone 1.67 uIU/mL (0.465-4.68)
[2022-08-03 13:02] LABS: Prostate Specific Ag Screen 1.4 ng/ml (0.0-4.0)
== END ==
LOC: LAB.DROPOF 08-18 14:30
PROVIDERS: PCP Family Medicine; Visit Provider Family Medicine
DX: E11.9 Type 2 diabetes mellitus without complications (principal); Z79.899 Other long term (current) drug therapy; Z12.5 Encounter for screening for malignant neoplasm of prostate
CPT/HCPCS: 80053; 80061; 83036; 84443; 85025; G0103

== ENCOUNTER → 2022-08-23 14:34 | Outpatient (CLI) | payer BC, MEDICAID, SELFPAY ==
--- NOTE | 2022-08-23 14:34 | CT_ITS ---
FINAL REPORT TECHNIQUE: Axial CT images of the chest were obtained without contrast. Low-dose protocol was utilized. This study was performed with techniques to keep radiation doses as low as reasonably achievable (ALARA). Individualized dose reduction techniques using automated exposure control or adjustment of mA and/or kV according to the patient's size were employed. CLINICAL HISTORY: lung cancer screening, Smoker, 1 ppd 40 years. COMPARISON: None FINDINGS: CT CHEST WITHOUT, LOW DOSE SCREENING CT Di Vol: 2.90 mGy DLP: 100.29 mGy*cm Multiple borderline sized and mildly enlarged mediastinal nodes and a 26 mm precarinal node are nonspecific and favored to be reactive. The heart size is normal. There is no pleural or pericardial effusion. The lung windows show a 6 mm medial left upper lobe nodule seen on image 20. There is mild scarring at the right lung base. Limited images of the upper abdomen demonstrate no acute findings. IMPRESSION: 6 mm medial left upper lobe nodule. LR Category 3: 6 month follow-up low-dose chest CT is recommended. Reviewed, Interpreted and Dictated by Tai Wood III, MD Transcribed by Mery Villasenor Authenticated and [facility]
--- NOTE | 2022-08-23 14:34 | US_ITS ---
FINAL REPORT CLINICAL HISTORY: N43.40 - Spermatocele of epididymis, unspecified FINDINGS: Technique: Ultrasound images of the testicles were obtained. Findings: The right testicle measures 4.8 x 3.4 x 2.6 cm. The left testicle measures 4.7 x 4.6 x 2.5 cm there is bilateral mild testicular microlithiasis that is nonspecific there is a large mildly complicated the left hydrocele. There is a 1.8 cm cyst in the left epididymal head. There is a 1.6 cm cyst in the right epididymal head. A left varicocele is present. IMPRESSION: No intratesticular mass or evidence of torsion. Large mildly complicated left hydrocele. Left varicocele. Bilateral epididymal head cysts Reviewed, Interpreted and Dictated by Tai Wood III, MD Transcribed by Dirk Cruz Authenticated and [facility]
== END ==
LOC: RAD 14:34
PROVIDERS: PCP Family Medicine; Visit Provider Family Medicine
DX: Z87.891 Personal history of nicotine dependence (principal); Z12.2 Encounter for screening for malignant neoplasm of respiratory organs; N43.40 Spermatocele of epididymis, unspecified
CPT/HCPCS: 71271; 76870

== ENCOUNTER 2023-08-12 10:38 | Outpatient (CLI) | payer BC, MEDICAID, SELFPAY ==
[2023-08-12 18:23] LABS: Basophils # 0.1 K/mm3 (0-0.2); Basophils % 0.9 % (0.1-2.0); Eosinophils # 0.2 K/mm3 (0.0-0.4); Eosinophils % 4.4 % (0.1-12.0); Hematocrit 49.7 % (42.0-52.0); Hemoglobin 16.5 g/dL (14.1-18.0); Lymphocytes # 1.6 K/mm3 (0.7-4.5); Lymphocytes % 28.1 % (10-50); Mean Corpuscular HGB Conc 33.2 g/dL (31.8-35.4); Mean Corpuscular Hemoglobin 31.9 pg (27.0-31.2); Mean Corpuscular Volume 96.1 fl (80-94); Mean Platelet Volume 9.6 fl (7.4-10.4); Monocytes # 0.4 K/mm3 (0.1-1.0); Monocytes % 6.7 % (1.7-9.3); Neutrophils # 3.3 K/mm3 (1.8-7.8); Platelet Count 195 K/mm3 (142-424); Red Blood Count 5.17 M/mm3 (4.60-6.20); Red Cell Distribution Width 13.3 % (11.5-17.5); White Blood Count 5.5 K/mm3 (4.8-10.8)
[2023-08-12 19:37] LABS: Alanine Aminotransferase 31 U/L (12-78); Albumin/Globulin Ratio 1.4 (1.1-1.8); Alkaline Phosphatase 112 U/L (38-126); Anion Gap 12.3 mEq/L (5-15); Aspartate Amino Transferase 29 U/L (17-59); Bilirubin,Total 0.6 mg/dl (0.2-1.3); Blood Urea Nitrogen 12 mg/dl (9-20); Carbon Dioxide 26 mmol/L (22.0-30.0); Chloride 103 mmol/L (98-107); Chol/HDL Ratio 4.2 (1-3.5); Cholesterol 155 mg/dl (140-200); Estimated Glomerular Filt Rate 77 ml/min (>60); GFR (African American) 93 ML/MIN (>60); Globulin 2.8 g/dL (1.3-3.2); Glucose 109 mg/dl (74-100); HDL Cholesterol 37 mg/dl (40-60); Potassium 4.3 mmoL/L (3.5-5.1); Sodium 137 mmol/L (136-145); Total Protein,Serum 6.8 g/dl (6.3-8.2); Triglycerides 157 mg/dl (30-150); VLDL Cholesterol 31 mg/dL (0-40)
[2023-08-12 19:48] LABS: Direct LDL Cholesterol 85.31 mg/dL (100-129)
[2023-08-12 20:06] LABS: Prostate Specific Ag Screen 1.6 ng/ml (0.0-4.0)
[2023-08-12 20:23] LABS: Hemoglobin A1C 6.9 % (4.0-6.0)
[2023-08-12 20:25] LABS: Creatinine,Urine Random 109 mg/dL (Not Estab.); Microalbumin < 6.000 mg/L (0-16.7)
== END 2023-08-12 23:59 | disposition home or self-care (01) ==
LOC: LAB.DROPOF 08-15 10:38
PROVIDERS: PCP Family Medicine; Visit Provider Family Medicine
DX: Z12.5 Encounter for screening for malignant neoplasm of prostate (principal); E78.5 Hyperlipidemia, unspecified
CPT/HCPCS: 80053; 80061; 82043; 82570; 83036; 85025; G0103

== ENCOUNTER 2023-09-01 11:01 | Outpatient (CLI) | payer BC, MEDICAID, SELFPAY ==
--- NOTE | 2023-09-01 11:06 | CA_ITS ---
APPROVED REPORT EXAM: Comprehensive 2D, Doppler, and color-flow Echocardiogram Art Therapy Certified Supervisor: OSEAS Hidalgo, RVS Ht: 5 ft 8 in Wt: 236lbs BSA: 2.19 BP: 141/87 mmHg Indications: Dyspnea, Smoker, HLD, QUOC, CAD 2D Dimensions LA Volume 52.90 mL LA Volume Index 24.448297 mL/m2 (M/F) 16-34 M-Mode Dimensions RVDd 3.46 cm (0.9-2.6) LA Diam 3.39 cm (1.9-4.0) LVDd 5.06 cm (3.5-5.7) LVDs 3.21 cm (3.5-5.7) IVSd 1.13 cm (0.6-1.1) PWd 0.84 cm (0.6-1.1) EF (Teich) 66.00% EPSs 0.81 cm FS 36.60% EDV (Teich) 121.60 mL TAPSE 2.02 (<1.7) ESV (Teich) 41.30 mL LV Diastology E Decel Time 190 (160-240 msec) E/A Ratio 1.20 MED A' 11.60 cm/s LAT A' 8.20 cm/s Aortic Valve MYA Index 1.28 cm2/m2 AoV Peak Henry. 104.0 (50-130 cm/s) AO Peak GR. 4.30 mmHg AO Mean GR. 2.20 (<5 mmHg) AO VTI 20.8 (18-25 cm) MYA (VTI) 2.87 (2.5-4.5 cm2) Mitral Valve MV A Velocity 66.0 (40-130 cm/s) E/A Ratio 1.20 Pulmonary Valve PV Peak Velocity 90.0 (50-150 cm/s) Left Ventricle The left ventricle is normal size. The left ventricular systolic function is normal. The left ventricular ejection fraction is within the normal range. There is normal left ventricular wall thickness. There is normal LV segmental wall motion. The left ventricular diastolic function is normal. LVEF is 55%. Right Ventricle The right ventricle is normal size. The right ventricular systolic function is normal. Atria The left atrium size is normal. The right atrium size is normal. There is no Doppler evidence of interatrial shunt. Aortic Valve The aortic valve opens well. There is no aortic valvular stenosis. No aortic regurgitation is present. Mitral Valve The mitral valve is normal in structure. No evidence of mitral valve stenosis. There is no mitral valve regurgitation noted. Tricuspid Valve The tricuspid valve leaflets are thin and pliable. Trace tricuspid regurgitation. There is insufficient TR jet to estimate RVSP. Pulmonic Valve The pulmonary valve is normal in structure. Trace pulmonic regurgitation. Great Vessels The aortic root is normal in size. The ascending aorta is not well-visualized. IVC is normal in size and collapses >50% with inspiration. Pericardium There is no pericardial effusion. Other Information Study Quality: Adequate Conclusion Normal biventricular systolic function. No significant valvular stenosis or regurgitation. Electronically signed by : Cat Scales MD 09/05/2023 00:21:21
== END 2023-09-01 23:59 | disposition home or self-care (01) ==
LOC: RT 11:02
PROVIDERS: PCP Family Medicine; Visit Provider Nurse Practitioner
DX: R06.00 Dyspnea, unspecified (principal); I25.10 Atherosclerotic heart disease of native coronary artery without angina pectoris; G47.33 Obstructive sleep apnea (adult) (pediatric); E78.5 Hyperlipidemia, unspecified; E11.9 Type 2 diabetes mellitus without complications; Z79.84 Long term (current) use of oral hypoglycemic drugs; F17.210 Nicotine dependence, cigarettes, uncomplicated
CPT/HCPCS: 93306